=== PATIENT | male | born 1990 | race Caucasian/White ===

== ENCOUNTER 2016-06-13 11:28 | Emergency (ER) | payer OTHER ==
[2016-06-13 11:45] VITALS: BP 132/76; PULSE 61; TEMP 98.5; BMI 28.4
--- NOTE | 2016-06-13 12:16 | PDOC ---
History of Present Illness - General Chief Complaint: Rash Stated Complaint: RASH Time Seen by Provider: 06/13/16 11:58 History Source: Patient Exam Limitations: No Limitations - History of Present Illness Initial Comments: 06/13/16 12:15 CC rash to groin and leg x months; no itchy Timing/Duration: reports: intermittent Severity: Yes: mild Location: reports: extremities Respiratory Risk Factors: reports: no cause identified Modifying Factors: worse with: antihistamine, scratching Past History - Past Medical History Allergies/Adverse Reactions: Allergies Allergy/AdvReac Type Severity Reaction Status Date / Time No Known Allergies Allergy Verified 06/13/16 11:40 Home Medications: Ambulatory Orders Clotrimazole/Betamet Diprop [Lotrisone Cream (Small Tube)] 1 applic TP BID #1 tube 06/13/16 Other medical history: none - Psycho/Social/Smoking Cessation Hx Anxiety: No Suicidal Ideation: No Smoking History: Never smoked Have you smoked in the past 12 months: No Information on smoking cessation initiated: No Hx Alcohol Use: No Drug/Substance Use Hx: No Substance Use Type: None Review of Systems - Review of Systems Constitutional: No: Chills, Fever, Malaise HEENTM: No: Symptoms Reported Respiratory: No: Symptoms reported Integumentary: Yes: Other (scaling rash to groin anleft lateral calf) *Physical Exam - Vital Signs Last Vital Signs Temp Pulse Resp BP Pulse Ox 98.5 F 61 18 132/76 100 06/13/16 11:41 06/13/16 11:41 06/13/16 11:41 06/13/16 11:41 06/13/16 11:41 - Physical Exam HEENT: positive: TMs Normal, Pharynx Normal Neck: negative: Rigid Respiratory/Chest: negative: Lungs Clear Cardiovascular: negative: Regular Rhythm, Regular Rate Medical Decision Making - Medical Decision Making 06/13/16 12:17 FSG= 101; please see local MD next week *DC/Admit/Observation/Transfer Diagnosis at time of Disposition: Tinea corporis - Discharge Dispostion Disposition: HOME Condition at time of disposition: Stable Admit: No - Referrals Referrals: Ashley Rogers MD [Staff Physician] - - Patient Instructions Additional Instructions: please see Dr Rogers if not better in 2 weeks - Post Discharge Activity Work/School Note: Back to Work
== END 2016-06-13 12:35 | disposition home or self-care (01) ==
LOC: JERFT 11:28
DX: B35.4 Tinea corporis (principal)
CPT/HCPCS: 99281-25